=== PATIENT | male | born 1950 | race Caucasian/White ===

== ENCOUNTER 2016-06-07 03:06 | Inpatient (IN) | payer MEDICARE ==
[2016-06-07] VITALS (17 sets, daily range): BP systolic 120–151; RESP 16–18; TEMP 97.9–98.7; Ht 185.4 cm; Wt 75.3 kg
[~2016-06-07] VITALS: Ht 185.4 cm; Wt 75.3 kg
[2016-06-07] MEDS ORDERED: SALINE FLUSH 10 ML FLUSH PRN (03:10)
[2016-06-07] MEDS ORDERED: [UNRECOGNIZED DRUG - REMARK] XX SCH (07:05)
[2016-06-07] MEDS: PIPERACIL/TAZO 3.375GM/50ML 50 ML IV SCH ×4 (08:21→23:32)
[2016-06-07] MEDS: MORPHINE 2 MG/ML SYR IV PRN ×3 (08:21→21:48)
[2016-06-07] MEDS: SALINE FLUSH 10 ML FLUSH SCH ×2 (08:22→20:49)
[2016-06-07] MEDS: SODIUM CHLORIDE 0.9% FLUSH BAG 500 ML IV SCH (08:22)
[2016-06-07] MEDS: Aspirin 325 MG TAB PO SCH (09:00)
[2016-06-07] MEDS ORDERED: LORAZEPAM 0.5 MG TAB PO PRN (09:25)
[2016-06-07] MEDS ORDERED: DIPHENHYDRAMINE 50 MG/ML VIAL IV ONE (09:25)
[2016-06-07] MEDS ORDERED: TEMAZEPAM 15 MG CAP PO PRN ×2 (09:25→12:25)
[2016-06-07] MEDS ORDERED: SOLU-CORTEF 100 MG/2 ML IV ONE (09:25)
[2016-06-07] MEDS ORDERED: TEMAZEPAM 7.5 MG CAP PO PRN (09:25)
[2016-06-07] MEDS ORDERED: ACETAMINOPHEN 325 MG TAB PO PRN ×2 (09:25→12:25)
[2016-06-07] MEDS ORDERED: PHENYLEPHRINE 10 MG/ML VIAL IV ONE (10:20)
[2016-06-07] MEDS ORDERED: FENTANYL 100 MCG/2 ML AMP IV ONE (10:20)
[2016-06-07] MEDS ORDERED: LIDOCAINE 2% SYR 5 ML IV ONE (10:20)
[2016-06-07] MEDS ORDERED: PROPOFOL 50ML PER ML IV ONE (10:20)
[2016-06-07] MEDS ORDERED: [UNRECOGNIZED DRUG - OTHER] IV ONE (11:50)
[2016-06-07] MEDS ORDERED: [UNRECOGNIZED DRUG - OTHER] IV SCH (11:50)
[2016-06-07] MEDS ORDERED: MORPHINE 2 MG/ML SYR IV ONE (12:25)
[2016-06-07] MEDS: TICAGRELOR 90 MG TAB PO SCH ×2 (12:25→20:49)
[2016-06-07] MEDS ORDERED: ATROPINE 1 MG/10 ML SYRINGE IV PRN (12:25)
[2016-06-07] MEDS: ASPIRIN 81 MG CHEW TAB PO SCH (12:25)
[2016-06-07] MEDS ORDERED: LIDOCAINE 2% 20 ML SUBQ ONE (12:25)
[2016-06-07] MEDS ORDERED: NITROGLYCERIN SL 0.4 MG TAB SL PRN (12:25)
[2016-06-07] MEDS ORDERED: DEXTROSE 5% SALINE 0.45% 1,000 ML IV SCH (12:25)
[2016-06-07] MEDS ORDERED: MIDAZOLAM 2 MG/2 ML INJ IV ONE (12:25)
[2016-06-07] MEDS: OXYCODONE/APAP 5/325 TAB PO PRN ×2 (13:32→20:52)
[2016-06-07] MEDS ORDERED: hePARIN 1,000 UNITS/ML (PORCINE) 10 ML ONE (16:19)
[2016-06-07] MEDS ORDERED: METOPROLOL 5 MG/5 ML VIAL IV ONE (16:19)
[2016-06-07] MEDS ORDERED: ASPIRIN 81 MG CHEW TAB ONE (16:19)
[2016-06-07] MEDS ORDERED: MORPHINE 10 MG VIAL ONE (16:19)
[2016-06-07] MEDS ORDERED: LIDOCAINE 2% 20 ML ONE (16:19)
[2016-06-07] MEDS ORDERED: DIPHENHYDRAMINE 50 MG/ML VIAL ONE (16:19)
[2016-06-07] MEDS ORDERED: SOLU-CORTEF 100 MG/2 ML ONE (16:19)
[2016-06-07] MEDS ORDERED: MIDAZOLAM 2 MG/2 ML INJ ONE (16:19)
[2016-06-07] MEDS ORDERED: MEPERIDINE 25 MG/ML ONE (16:19)
[2016-06-07] MEDS ORDERED: TICAGRELOR 90 MG TAB ONE (16:19)
[2016-06-07] MEDS ORDERED: FENTANYL 100 MCG/2 ML AMP ONE (16:19)
[2016-06-07] MEDS: Atorvastatin 10 MG TAB PO SCH (20:49)
[2016-06-08] MEDS: ONDANSETRON 4 MG VIAL IV PRN ×2 (00:54→06:04)
[2016-06-08] MEDS: OXYCODONE/APAP 5/325 TAB PO PRN (03:17)
[2016-06-08 03:50] VITALS: BP_SYST 150; RESP 16; TEMP 98.3
[2016-06-08] MEDS: PIPERACIL/TAZO 3.375GM/50ML 50 ML IV SCH ×3 (05:26→17:28)
[2016-06-08] MEDS: SODIUM CHLORIDE 0.9% FLUSH BAG 500 ML IV SCH (05:26)
[2016-06-08 07:57] VITALS: BP_SYST 151; RESP 16; TEMP 97.6
[2016-06-08] MEDS: Aspirin 325 MG TAB PO SCH (08:05)
[2016-06-08] MEDS: ASPIRIN 81 MG CHEW TAB PO SCH (08:18)
[2016-06-08] MEDS: TICAGRELOR 90 MG TAB PO SCH ×2 (08:18→21:06)
[2016-06-08] MEDS: SALINE FLUSH 10 ML FLUSH SCH ×2 (08:18→20:00)
[2016-06-08] MEDS: PROMETHAZINE 25 MG/ML VIAL IV PRN ×4 (08:19→21:05)
[2016-06-08] MEDS: MORPHINE 2 MG/ML SYR IV PRN ×4 (08:19→21:06)
[2016-06-08 12:08] VITALS: BP_SYST 155; RESP 16; TEMP 98.4
[2016-06-08] MEDS: SODIUM CHLORIDE 0.9% 1,000 ML IV SCH ×2 (12:11→19:20)
[2016-06-08 15:33] VITALS: BP_SYST 142; RESP 16; TEMP 99
[2016-06-08] MEDS: METOPROLOL XL 50 MG TAB PO SCH (16:51)
[2016-06-08 20:16] VITALS: BP_SYST 144; RESP 16; TEMP 98.6
[2016-06-08] MEDS: Atorvastatin 10 MG TAB PO SCH (21:06)
[2016-06-08] MEDS: BUSPIRONE HCL 10 MG TAB PO SCH (21:06)
[2016-06-08] MEDS: FLUOXETINE 20 MG CAP PO SCH (21:06)
[2016-06-08] MEDS: GABAPENTIN 400 MG CAP PO SCH (21:06)
[2016-06-08] MEDS: MIRTAZAPINE 15 MG TAB PO SCH (21:06)
[2016-06-08 23:51] VITALS: BP_SYST 135; RESP 16; TEMP 98.5
[2016-06-09] MEDS: PIPERACIL/TAZO 3.375GM/50ML 50 ML IV SCH ×2 (01:44→06:07)
[2016-06-09] MEDS: SODIUM CHLORIDE 0.9% 1,000 ML IV SCH ×3 (01:44→22:53)
[2016-06-09] MEDS: MORPHINE 2 MG/ML SYR IV PRN ×5 (01:52→22:49)
[2016-06-09 03:55] VITALS: BP_SYST 126; RESP 16; TEMP 98.3
[2016-06-09] MEDS: SODIUM CHLORIDE 0.9% FLUSH BAG 500 ML IV SCH (05:29)
[2016-06-09] MEDS: PROMETHAZINE 25 MG/ML VIAL IV PRN ×3 (06:14→17:51)
[2016-06-09] MEDS ORDERED: TEMAZEPAM 7.5 MG CAP PO PRN (07:15)
[2016-06-09 07:55] VITALS: BP_SYST 158; RESP 16; TEMP 98.3
[2016-06-09] MEDS: SALINE FLUSH 10 ML FLUSH SCH ×2 (08:00→20:29)
[2016-06-09] MEDS ORDERED: LISINOPRIL 5 MG TAB PO SCH (09:00)
[2016-06-09] MEDS: LISINOPRIL 10 MG TAB PO SCH (09:00)
[2016-06-09] MEDS: BUSPIRONE HCL 10 MG TAB PO SCH ×2 (09:23→20:29)
[2016-06-09] MEDS: METOPROLOL XL 50 MG TAB PO SCH (09:23)
[2016-06-09] MEDS: GABAPENTIN 400 MG CAP PO SCH ×4 (09:23→20:29)
[2016-06-09] MEDS: TICAGRELOR 90 MG TAB PO SCH ×2 (09:23→20:29)
[2016-06-09] MEDS: ASPIRIN 81 MG CHEW TAB PO SCH (09:25)
[2016-06-09] MEDS ORDERED: MAG HYDROX 30 ML UDC PO PRN (10:50)
[2016-06-09 11:34] VITALS: BP_SYST 158; RESP 20; TEMP 98
[2016-06-09] MEDS: DOCUSATE SOD 100 MG CAP PO SCH ×2 (13:09→20:29)
[2016-06-09] MEDS: POLYETHYLENE GLYCOL 17 GM PACKET PO SCH ×2 (13:10→20:29)
[2016-06-09 15:00] VITALS: BP_SYST 143; RESP 16; TEMP 98.5
[2016-06-09 19:00] VITALS: BP_SYST 134; RESP 16; TEMP 98.5
[2016-06-09] MEDS: FLUOXETINE 20 MG CAP PO SCH (20:29)
[2016-06-09] MEDS: Atorvastatin 10 MG TAB PO SCH (20:29)
[2016-06-09] MEDS: MIRTAZAPINE 15 MG TAB PO SCH (20:29)
[2016-06-09 23:00] VITALS: BP_SYST 147; RESP 16; TEMP 98
[2016-06-10 03:00] VITALS: BP_SYST 142; RESP 16; TEMP 98.3
[2016-06-10] MEDS: MORPHINE 2 MG/ML SYR IV PRN ×5 (04:15→23:26)
[2016-06-10] MEDS: SODIUM CHLORIDE 0.9% FLUSH BAG 500 ML IV SCH (05:05)
[2016-06-10] MEDS: SALINE FLUSH 10 ML FLUSH SCH ×2 (08:00→19:20)
[2016-06-10 08:03] VITALS: BP_SYST 159; RESP 18; TEMP 98.2
[2016-06-10] MEDS: POLYETHYLENE GLYCOL 17 GM PACKET PO SCH ×2 (09:00→20:04)
[2016-06-10] MEDS ORDERED: LISINOPRIL 5 MG TAB PO SCH (09:00)
[2016-06-10] MEDS ORDERED: LISINOPRIL 10 MG TAB PO SCH (09:00)
[2016-06-10] MEDS: DOCUSATE SOD 100 MG CAP PO SCH ×2 (09:10→20:04)
[2016-06-10] MEDS: BUSPIRONE HCL 10 MG TAB PO SCH ×2 (09:10→20:04)
[2016-06-10] MEDS: TICAGRELOR 90 MG TAB PO SCH ×2 (09:10→20:04)
[2016-06-10] MEDS: ASPIRIN 81 MG CHEW TAB PO SCH (09:10)
[2016-06-10] MEDS: GABAPENTIN 400 MG CAP PO SCH ×4 (09:10→20:04)
[2016-06-10] MEDS: LISINOPRIL 10 MG TAB PO SCH (09:10)
[2016-06-10] MEDS: METOPROLOL XL 50 MG TAB PO SCH (09:10)
[2016-06-10] MEDS: PROMETHAZINE 25 MG/ML VIAL IV PRN ×4 (09:11→23:26)
[2016-06-10 11:31] VITALS: BP_SYST 152; RESP 18; TEMP 98.3
[2016-06-10] MEDS: LORAZEPAM 0.5 MG TAB PO PRN ×2 (12:31→20:04)
[2016-06-10] MEDS: SODIUM CHLORIDE 0.9% 1,000 ML IV SCH (12:31)
[2016-06-10 15:42] VITALS: BP_SYST 141; RESP 18; TEMP 98.3
[2016-06-10 20:04] VITALS: BP_SYST 145; RESP 18; TEMP 98.2
[2016-06-10] MEDS: Atorvastatin 40 MG TAB PO SCH (20:04)
[2016-06-10] MEDS: MIRTAZAPINE 15 MG TAB PO SCH (20:04)
[2016-06-10] MEDS: FLUOXETINE 20 MG CAP PO SCH (20:04)
[2016-06-10 23:29] VITALS: BP_SYST 135; RESP 18; TEMP 98.6
[2016-06-11] VITALS (23 sets, daily range): BP systolic 133–180; RESP 13–18; TEMP 98–99
[2016-06-11] MEDS: SODIUM CHLORIDE 0.9% FLUSH BAG 500 ML IV SCH (05:00)
[2016-06-11] MEDS ORDERED: MIDAZOLAM 2 MG/2 ML INJ IV ONE (07:35)
[2016-06-11] MEDS ORDERED: LIDOCAINE 1% BUFFERED 1 ML SYR INTRADERM PRN (07:35)
[2016-06-11] MEDS ORDERED: LACT RINGERS 1,000 ML IV SCH (07:35)
[2016-06-11] MEDS: SALINE FLUSH 10 ML FLUSH SCH ×2 (08:00→20:42)
[2016-06-11] MEDS: POLYETHYLENE GLYCOL 17 GM PACKET PO SCH ×2 (08:27→20:40)
[2016-06-11] MEDS: BUSPIRONE HCL 10 MG TAB PO SCH ×2 (08:31→20:40)
[2016-06-11] MEDS: GABAPENTIN 400 MG CAP PO SCH ×4 (08:31→20:40)
[2016-06-11] MEDS: METOPROLOL XL 50 MG TAB PO SCH (08:31)
[2016-06-11] MEDS ORDERED: LISINOPRIL 20 MG TAB PO SCH (09:00)
[2016-06-11] MEDS ORDERED: MORPHINE 2 MG/ML SYR IV PRN (13:25)
[2016-06-11] MEDS ORDERED: OXYCODONE 5 MG TAB PO PRN (13:25)
[2016-06-11] MEDS ORDERED: MORPHINE 4 MG/ML SYR IV PRN (13:25)
[2016-06-11] MEDS ORDERED: ONDANSETRON 4 MG VIAL IV PRN (13:25)
[2016-06-11] MEDS: DILAUDID 1 MG/ML AMP IV PRN ×3 (14:06→14:29)
[2016-06-11] MEDS: TICAGRELOR 90 MG TAB PO SCH ×2 (15:21→20:39)
[2016-06-11] MEDS: DOCUSATE SOD 100 MG CAP PO SCH ×2 (15:21→20:40)
[2016-06-11] MEDS: ASPIRIN 81 MG CHEW TAB PO SCH (15:22)
[2016-06-11] MEDS: SODIUM CHLORIDE 0.9% 1,000 ML IV SCH (15:31)
[2016-06-11] MEDS: LORAZEPAM 0.5 MG TAB PO PRN ×2 (15:31→20:40)
[2016-06-11] MEDS: PROMETHAZINE 25 MG/ML VIAL IV PRN ×2 (17:34→22:04)
[2016-06-11] MEDS: MORPHINE 2 MG/ML SYR IV PRN ×2 (17:35→22:04)
[2016-06-11] MEDS: FLUOXETINE 20 MG CAP PO SCH (20:39)
[2016-06-11] MEDS: MIRTAZAPINE 15 MG TAB PO SCH (20:40)
[2016-06-11] MEDS: LISINOPRIL 20 MG TAB PO SCH (20:41)
[2016-06-11] MEDS: OXYCODONE/APAP 5/325 TAB PO PRN (20:41)
[2016-06-11] MEDS: Atorvastatin 40 MG TAB PO SCH (20:42)
[2016-06-12 03:16] VITALS: BP_SYST 140; RESP 16; TEMP 98.7
[2016-06-12] MEDS: PROMETHAZINE 25 MG/ML VIAL IV PRN (05:15)
[2016-06-12] MEDS: MORPHINE 2 MG/ML SYR IV PRN (05:15)
[2016-06-12] MEDS: SODIUM CHLORIDE 0.9% FLUSH BAG 500 ML IV SCH (05:34)
[2016-06-12] MEDS: SODIUM CHLORIDE 0.9% 1,000 ML IV SCH (05:34)
[2016-06-12 07:50] VITALS: BP_SYST 147; RESP 16; TEMP 98.7
[2016-06-12] MEDS: LISINOPRIL 20 MG TAB PO SCH (08:24)
[2016-06-12] MEDS: TICAGRELOR 90 MG TAB PO SCH (08:24)
[2016-06-12] MEDS: BUSPIRONE HCL 10 MG TAB PO SCH (08:24)
[2016-06-12] MEDS: ASPIRIN 81 MG CHEW TAB PO SCH (08:24)
[2016-06-12] MEDS: GABAPENTIN 400 MG CAP PO SCH ×3 (08:24→17:22)
[2016-06-12] MEDS: POLYETHYLENE GLYCOL 17 GM PACKET PO SCH (08:24)
[2016-06-12] MEDS: LORAZEPAM 0.5 MG TAB PO PRN ×2 (08:24→17:22)
[2016-06-12] MEDS: DOCUSATE SOD 100 MG CAP PO SCH (08:24)
[2016-06-12] MEDS: SALINE FLUSH 10 ML FLUSH SCH (08:24)
[2016-06-12] MEDS: OXYCODONE/APAP 5/325 TAB PO PRN ×2 (08:31→13:45)
[2016-06-12] MEDS ORDERED: MISSING DOSE XX ONE (08:35)
[2016-06-12] MEDS ORDERED: PHARMACY TO DOSE ZOSYN IV SCH (10:15)
[2016-06-12 11:46] VITALS: BP_SYST 128; RESP 20; TEMP 98.2
[2016-06-12] MEDS ORDERED: PIPERACIL/TAZO 3.375GM/50ML 50 ML IV SCH (12:00)
[2016-06-12] MEDS: METOPROLOL XL 50 MG TAB PO SCH (12:10)
[2016-06-12 15:01] VITALS: BP_SYST 142; RESP 20; TEMP 98.4
[2016-06-12 15:02] VITALS: TEMP 98.1
[2016-06-12 16:46] VITALS: BP_SYST 142; RESP 20; TEMP 98.1
== END 2016-06-12 18:32 | disposition home health service (06) | DRG 247 ==
LOC: ENRESERVDT → ENRESERVTM → 5THW 06:18 → ENPENDDIS 06:18 → TBA 12:08 → CTH 12:10 → PCU 12:57 → MC2 06-11 09:05 → PCU 06-11 09:07
PROVIDERS: ADMIT Hospitalist; ATTEND Hospitalist
PROC: 4A023N7 Measurement of Cardiac Sampling and Pressure, Left Heart, Percutaneous Approach (ICD-10-PCS; principal; 2016-06-07)
PROC: 027034Z Dilation of Coronary Artery, One Artery with Drug-eluting Intraluminal Device, Percutaneous Approach (ICD-10-PCS; 2016-06-07)
PROC: B2111ZZ Fluoroscopy of Multiple Coronary Arteries using Low Osmolar Contrast (ICD-10-PCS; 2016-06-07)
PROC: B2151ZZ Fluoroscopy of Left Heart using Low Osmolar Contrast (ICD-10-PCS; 2016-06-07)
PROC: 0T768DZ Dilation of Right Ureter with Intraluminal Device, Via Natural or Artificial Opening Endoscopic (ICD-10-PCS; 2016-06-11)
CPT/HCPCS: 74000; 76000; 80053; 82553; 84484; 85014; 85018; 85025; 85347; 85379; 85610; 87040; 93005; 93458; 94799; 99222; 99232; 99233; 99238

== ENCOUNTER 2016-07-14 18:53 | Inpatient (IN) | payer MEDICARE ==
[~2016-07-14] VITALS: Ht 185.4 cm; Wt 77.3 kg
[~2016-07-14 18:53] MED LIST: MIDAZOLAM 2 MG/2 ML INJ IV ONE; ONDANSETRON 4 MG VIAL IV PUSH ONE; PROPOFOL 50ML VIAL IV ONE
[2016-07-14 20:57] VITALS: BP_SYST 130; RESP 16; TEMP 98.1
[2016-07-14 20:58] VITALS: Ht 185.4 cm; Wt 77.3 kg
[2016-07-14] MEDS ORDERED: ALU/MAG/SIM 30 ML UDC PO PRN (21:30)
[2016-07-14] MEDS ORDERED: TEMAZEPAM 7.5 MG CAP PO PRN (21:30)
[2016-07-14] MEDS ORDERED: TEMAZEPAM 15 MG CAP PO PRN (21:30)
[2016-07-14] MEDS ORDERED: DOCUSATE SOD 100 MG CAP PO PRN (21:30)
[2016-07-14] MEDS ORDERED: SALINE FLUSH 10 ML FLUSH PRN (21:30)
[2016-07-14] MEDS ORDERED: LORAZEPAM 0.5 MG TAB PO PRN (21:30)
[2016-07-14] MEDS ORDERED: ASPIRIN 81 MG CHEW TAB PO STA (21:30)
[2016-07-14] MEDS ORDERED: NITROGLYCERIN SL 0.4 MG TAB SL PRN (21:30)
[2016-07-14] MEDS: MORPHINE 2 MG/ML SYR IV PRN (22:21)
[2016-07-14 22:56] VITALS: RESP 14
[2016-07-14 23:16] VITALS: BP_SYST 122; RESP 18; TEMP 98.2
[2016-07-15] MEDS: NITROGLYCERIN 2% OINT 1 INCH PKT TOPICAL SCH ×4 (00:02→17:11)
[2016-07-15] MEDS: ONDANSETRON 4 MG VIAL IV PRN ×4 (00:28→18:44)
[2016-07-15] MEDS: TRAMADOL 50 MG TAB PO PRN ×2 (00:29→07:42)
[2016-07-15] MEDS: MORPHINE 2 MG/ML SYR IV PRN ×7 (00:37→22:55)
[2016-07-15 03:00] VITALS: BP_SYST 109; RESP 18; TEMP 98.1
[2016-07-15] MEDS: SODIUM CHLORIDE 0.9% FLUSH BAG 500 ML IV SCH ×2 (04:48→22:20)
[2016-07-15] MEDS: ASPIRIN 81 MG CHEW TAB PO SCH (07:40)
[2016-07-15] MEDS: SALINE FLUSH 10 ML FLUSH SCH ×2 (07:40→20:30)
[2016-07-15 08:10] VITALS: BP_SYST 140; RESP 18; TEMP 98.4
[2016-07-15] MEDS: DOCUSATE SOD 100 MG CAP PO SCH ×2 (08:44→20:31)
[2016-07-15] MEDS: LISINOPRIL 20 MG TAB PO SCH ×2 (08:44→20:31)
[2016-07-15] MEDS: TICAGRELOR 90 MG TAB PO SCH ×2 (08:44→20:30)
[2016-07-15] MEDS: BUSPIRONE HCL 10 MG TAB PO SCH ×2 (08:44→20:31)
[2016-07-15] MEDS: METOPROLOL XL 50 MG TAB PO SCH (08:45)
[2016-07-15] MEDS: OXYCODONE/APAP 5/325 TAB PO PRN ×3 (08:45→17:16)
[2016-07-15] MEDS: GABAPENTIN 400 MG CAP PO SCH ×4 (08:46→20:31)
[2016-07-15] MEDS ORDERED: ASPIRIN 81 MG CHEW TAB PO SCH (09:00)
[2016-07-15 11:23] VITALS: BP_SYST 136; RESP 18; TEMP 98.2
[2016-07-15] MEDS: POLYETHYLENE GLYCOL 17 GM PACKET PO SCH (12:31)
[2016-07-15 15:00] VITALS: BP_SYST 140; RESP 18; TEMP 98.1
[2016-07-15] MEDS: LACT RINGERS 1,000 ML IV SCH (18:44)
[2016-07-15 20:17] VITALS: BP_SYST 137; RESP 18; TEMP 98.2
[2016-07-15] MEDS: FLUOXETINE 20 MG CAP PO SCH (20:31)
[2016-07-15] MEDS: Atorvastatin 40 MG TAB PO SCH (20:31)
[2016-07-15] MEDS: MIRTAZAPINE 15 MG TAB PO SCH (20:31)
[2016-07-15 23:36] VITALS: BP_SYST 169; RESP 18; TEMP 97.7
[2016-07-16] VITALS (19 sets, daily range): BP systolic 112–147; RESP 16–20; TEMP 98–101.5
[2016-07-16] MEDS: MORPHINE 2 MG/ML SYR IV PRN ×4 (03:08→19:57)
[2016-07-16] MEDS: NITROGLYCERIN 2% OINT 1 INCH PKT TOPICAL SCH ×4 (05:58→17:08)
[2016-07-16] MEDS: SALINE FLUSH 10 ML FLUSH SCH ×2 (08:13→19:58)
[2016-07-16] MEDS ORDERED: MORPHINE 4 MG/ML SYR IV PRN (09:35)
[2016-07-16] MEDS ORDERED: ONDANSETRON 4 MG VIAL IV PRN (09:35)
[2016-07-16] MEDS ORDERED: OXYCODONE 5 MG TAB PO PRN (09:35)
[2016-07-16] MEDS ORDERED: MORPHINE 2 MG/ML SYR IV PRN (09:35)
[2016-07-16] MEDS ORDERED: DILAUDID 1 MG/ML AMP IV PRN (09:35)
[2016-07-16] MEDS: TICAGRELOR 90 MG TAB PO SCH ×2 (09:37→20:00)
[2016-07-16] MEDS ORDERED: BISACODYL 10 MG SUPP RECTAL PRN (10:20)
[2016-07-16] MEDS ORDERED: DILAUDID 1 MG/ML AMP ONE (10:48)
[2016-07-16] MEDS: METOPROLOL XL 50 MG TAB PO SCH (11:23)
[2016-07-16] MEDS: DOCUSATE SOD 100 MG CAP PO SCH ×2 (11:23→19:58)
[2016-07-16] MEDS: LISINOPRIL 20 MG TAB PO SCH ×2 (11:23→20:00)
[2016-07-16] MEDS: POLYETHYLENE GLYCOL 17 GM PACKET PO SCH (11:23)
[2016-07-16] MEDS: GABAPENTIN 400 MG CAP PO SCH ×4 (11:24→20:00)
[2016-07-16] MEDS: BUSPIRONE HCL 10 MG TAB PO SCH ×2 (11:24→20:00)
[2016-07-16] MEDS: ASPIRIN 81 MG CHEW TAB PO SCH (11:24)
[2016-07-16] MEDS: LACT RINGERS 1,000 ML IV SCH (11:25)
[2016-07-16] MEDS: SENNA 8.6 MG TAB PO SCH ×2 (12:20→19:58)
[2016-07-16] MEDS: OXYCODONE/APAP 5/325 TAB PO PRN ×2 (17:04→23:27)
[2016-07-16] MEDS: MIRTAZAPINE 15 MG TAB PO SCH (20:00)
[2016-07-16] MEDS: Atorvastatin 40 MG TAB PO SCH (20:00)
[2016-07-16] MEDS: FLUOXETINE 20 MG CAP PO SCH (20:00)
[2016-07-16] MEDS: SODIUM CHLORIDE 0.9% FLUSH BAG 500 ML IV SCH (22:30)
[2016-07-17] VITALS (7 sets, daily range): BP systolic 91–130; RESP 18; TEMP 97.4–98.7
[2016-07-17] MEDS: ACETAMINOPHEN 325 MG TAB PO PRN (00:50)
[2016-07-17] MEDS: MORPHINE 2 MG/ML SYR IV PRN ×2 (07:27→12:41)
[2016-07-17] MEDS: SENNA 8.6 MG TAB PO SCH ×2 (09:00→20:19)
[2016-07-17] MEDS: DOCUSATE SOD 100 MG CAP PO SCH ×2 (09:00→20:18)
[2016-07-17] MEDS: POLYETHYLENE GLYCOL 17 GM PACKET PO SCH (09:00)
[2016-07-17] MEDS: SALINE FLUSH 10 ML FLUSH SCH ×2 (09:13→20:26)
[2016-07-17] MEDS: GABAPENTIN 400 MG CAP PO SCH ×4 (09:13→20:27)
[2016-07-17] MEDS: METOPROLOL XL 50 MG TAB PO SCH (09:13)
[2016-07-17] MEDS: LISINOPRIL 20 MG TAB PO SCH ×2 (09:13→20:27)
[2016-07-17] MEDS: TICAGRELOR 90 MG TAB PO SCH ×2 (09:15→20:27)
[2016-07-17] MEDS: ASPIRIN 81 MG CHEW TAB PO SCH (09:15)
[2016-07-17] MEDS: BUSPIRONE HCL 10 MG TAB PO SCH ×2 (09:16→20:27)
[2016-07-17] MEDS: OXYCODONE/APAP 5/325 TAB PO PRN ×3 (09:23→18:36)
[2016-07-17] MEDS ORDERED: BISACODYL 10 MG SUPP RECTAL PRN (11:55)
[2016-07-17] MEDS: MIRTAZAPINE 15 MG TAB PO SCH (20:27)
[2016-07-17] MEDS: FLUOXETINE 20 MG CAP PO SCH (20:27)
[2016-07-17] MEDS: Atorvastatin 40 MG TAB PO SCH (20:27)
[2016-07-18] MEDS: MORPHINE 2 MG/ML SYR IV PRN ×4 (01:36→17:25)
[2016-07-18 03:13] VITALS: BP_SYST 112; RESP 20; TEMP 98.8
[2016-07-18] MEDS: SODIUM CHLORIDE 0.9% FLUSH BAG 500 ML IV SCH (06:00)
[2016-07-18 07:02] VITALS: BP_SYST 118; RESP 18; TEMP 98.8
[2016-07-18] MEDS: SALINE FLUSH 10 ML FLUSH SCH ×2 (08:43→20:03)
[2016-07-18] MEDS: BUSPIRONE HCL 10 MG TAB PO SCH ×2 (08:50→20:01)
[2016-07-18] MEDS: DOCUSATE SOD 100 MG CAP PO SCH ×2 (08:50→20:06)
[2016-07-18] MEDS: LISINOPRIL 20 MG TAB PO SCH ×2 (08:50→20:01)
[2016-07-18] MEDS: TICAGRELOR 90 MG TAB PO SCH (08:50)
[2016-07-18] MEDS: GABAPENTIN 400 MG CAP PO SCH ×4 (08:50→20:02)
[2016-07-18] MEDS: ASPIRIN 81 MG CHEW TAB PO SCH (08:50)
[2016-07-18] MEDS: METOPROLOL XL 50 MG TAB PO SCH (08:50)
[2016-07-18] MEDS: POLYETHYLENE GLYCOL 17 GM PACKET PO SCH (09:00)
[2016-07-18] MEDS: SENNA 8.6 MG TAB PO SCH ×2 (09:00→20:06)
[2016-07-18] MEDS: OXYCODONE/APAP 5/325 TAB PO PRN ×3 (10:36→20:01)
[2016-07-18 11:06] VITALS: BP_SYST 107; RESP 16; TEMP 97.4
[2016-07-18] MEDS: TAMSULOSIN 0.4 MG CAP PO SCH (18:49)
[2016-07-18 19:43] VITALS: BP_SYST 104; RESP 18; TEMP 98.4
[2016-07-18] MEDS: Atorvastatin 40 MG TAB PO SCH (20:02)
[2016-07-18] MEDS: FLUOXETINE 20 MG CAP PO SCH (20:02)
[2016-07-18] MEDS: MIRTAZAPINE 15 MG TAB PO SCH (20:02)
[2016-07-18] MEDS: ACETAMINOPHEN 325 MG TAB PO PRN (21:56)
[2016-07-18 22:57] VITALS: BP_SYST 90; RESP 18; TEMP 99.4
[2016-07-19 03:05] VITALS: BP_SYST 118; RESP 16; TEMP 98.1
[2016-07-19] MEDS: OXYCODONE/APAP 5/325 TAB PO PRN ×3 (03:07→15:28)
[2016-07-19] MEDS: SODIUM CHLORIDE 0.9% FLUSH BAG 500 ML IV SCH (05:53)
[2016-07-19 07:17] VITALS: BP_SYST 107; RESP 16; TEMP 98
[2016-07-19] MEDS ORDERED: MISSING DOSE XX ONE ×2 (07:50→08:15)
[2016-07-19] MEDS: CLOPIDOGREL 75 MG TAB PO SCH ×2 (07:52→08:08)
[2016-07-19] MEDS: METOPROLOL XL 50 MG TAB PO SCH (08:06)
[2016-07-19] MEDS: BUSPIRONE HCL 10 MG TAB PO SCH (08:07)
[2016-07-19] MEDS: LISINOPRIL 20 MG TAB PO SCH (08:07)
[2016-07-19] MEDS: GABAPENTIN 400 MG CAP PO SCH ×3 (08:07→17:00)
[2016-07-19] MEDS: TAMSULOSIN 0.4 MG CAP PO SCH (08:07)
[2016-07-19] MEDS: ASPIRIN 81 MG CHEW TAB PO SCH (08:08)
[2016-07-19] MEDS: SALINE FLUSH 10 ML FLUSH SCH (08:12)
[2016-07-19] MEDS: DOCUSATE SOD 100 MG CAP PO SCH (08:13)
[2016-07-19] MEDS: POLYETHYLENE GLYCOL 17 GM PACKET PO SCH (08:14)
[2016-07-19] MEDS: SENNA 8.6 MG TAB PO SCH (08:14)
[2016-07-19 11:07] VITALS: BP_SYST 118; RESP 18; TEMP 98.3
[2016-07-19 12:13] VITALS: BP_SYST 124; RESP 16; TEMP 98.5
[2016-07-19 15:26] VITALS: BP_SYST 124; RESP 16; TEMP 98.5
== END 2016-07-19 17:37 | disposition home or self-care (01) | DRG 694 ==
LOC: ENRESERVDT → ENRESERVTM → ENPENDDIS 20:47 → PCU 20:47 → PCU2 07-17 00:38 → 3NT 07-17 13:57
PROVIDERS: ADMIT Internal Medicine; ATTEND Internal Medicine
PROC: 0T768DZ Dilation of Right Ureter with Intraluminal Device, Via Natural or Artificial Opening Endoscopic (ICD-10-PCS; principal; 2016-07-16 09:40)
DX: N13.2 Hydronephrosis with renal and ureteral calculous obstruction (principal); I48.91 Unspecified atrial fibrillation; I10 Essential (primary) hypertension; F32.9 Major depressive disorder, single episode, unspecified; G40.909 Epilepsy, unspecified, not intractable, without status epilepticus; F17.210 Nicotine dependence, cigarettes, uncomplicated; I25.10 Atherosclerotic heart disease of native coronary artery without angina pectoris; Z95.5 Presence of coronary angioplasty implant and graft; K59.00 Constipation, unspecified; R33.9 Retention of urine, unspecified; Z79.82 Long term (current) use of aspirin
CPT/HCPCS: 74000; 76000; 80048; 80061; 81001; 82550; 84484; 85025; 87088; 93005; 94799; 99222; 99232; 99233; 99238